=== PATIENT | male | born 1945 | race American Indian/Alaskan Native ===

== ENCOUNTER 2016-12-09 08:58 | Outpatient (CLI) | payer MEDICARE ==
--- NOTE | 2016-12-09 14:28 | Fluoroscopy Report ---
Modified barium swallow: History: Dysphagia. Findings: There is no anatomic obstruction to the flow of liquids, semisolid and solid food through the cervical esophagus. Minimal penetration was noted. No aspiration. Additional findings would be provided by speech therapist. Impression: Findings the vertebral
== END 2016-12-09 08:59 | disposition home or self-care (01) ==
LOC: PT 08:58
PROVIDERS: ATTEND Internal Medicine Gastroenterology
DX: R13.10 Dysphagia, unspecified (principal)
CPT/HCPCS: 74230; 92611; G8996; G8997

== ENCOUNTER 2018-05-31 08:58 | Outpatient (CLI) | payer MEDICARE ==
[2018-05-31 09:13] LABS: Hematocrit 43.2 % (35.5-45.6); Hemoglobin 14.1 gm/dl (11.8-15.2); Mean Corpuscular HGB Conc 33 % (32-34); Mean Corpuscular Hemoglobin 33 pg (28-32); Mean Corpuscular Volume 101 fl (84-94); Platelet Count 175 K/mm3 (140-440); Red Blood Count 4.29 M/mm3 (3.65-5.03); Red Cell Distribution Width 12.5 % (13.2-15.2)
[2018-05-31 09:33] LABS: Alanine Aminotransferase 40 units/L (7-56); Albumin 4.5 g/dL (3.9-5); BUN/Creatinine Ratio 21; Blood Urea Nitrogen 17 mg/dL (9-20); Calcium 9.3 mg/dL (8.4-10.2); Hemolysis Index 1
[2018-05-31 09:39] LABS: Erythrocyte Sedimentation Rate 10 mm/Hr (0-20)
== END 2018-05-31 08:59 | disposition home or self-care (01) ==
LOC: LAB 08:58
PROVIDERS: ATTEND Specialist
DX: E11.42 Type 2 diabetes mellitus with diabetic polyneuropathy (principal); I10 Essential (primary) hypertension
CPT/HCPCS: 36415; 80053; 85027; 85652